=== PATIENT | male | born 1980 | race Caucasian/White ===

== ENCOUNTER 2016-05-29 07:45 | Emergency (ER) | payer BC ==
--- NOTE | 2016-05-29 07:54 | UC ---
Throat Pain/Nasal Rhett HPI - HPI Summary HPI Summary: Girlfriend and her child have had confirmed strep throat. - History of Current Complaint Stated Complaint: SORE THROAT,FEVER Hx Obtained From: Patient Onset/Duration: Gradual Onset Severity: Moderate Cough: None Associated Signs & Symptoms: Positive: Dysphagia. Negative: FB Sensation, Drooling, Wheezing, Hoarseness, Sinus Discomfort, Vomiting, Rash - Epiglottits Risk Factors Epiglottis Risk Factors: Negative - Allergies/Home Medications Allergies/Adverse Reactions: Allergies Allergy/AdvReac Type Severity Reaction Status Date / Time No Known Allergies Allergy Verified 05/29/16 07:51 Home Medications: Home Medications Acetaminophen TAB* [Tylenol TAB*] 650 mg PO Q4H PRN 05/29/16 [History Confirmed 05/29/16] PMH/Surg Hx/FS Hx/Imm Hx GI/ History Of: Reports: Gastroesophageal Reflux Denies: Ulcer, Gastrointestinal Bleed - Surgical History Surgical History: None - Family History Known Family History: Positive: Respiratory Disease - Denies FMH of COPD - Social History Alcohol Use: Weekly Alcohol Amount: once a week Substance Use Type: None Smoking Status (MU): Never Smoked Tobacco Type: Smokeless Tobacco - Immunization History Most Recent Influenza Vaccination: none Review of Systems All Other Systems Reviewed And Are Negative: Yes Physical Exam Triage Information Reviewed: Yes Appearance: Well-Appearing, No Pain Distress, Well-Nourished Vital Signs Reviewed: Yes Eye Exam: Normal Eyes: Positive: Conjunctiva Clear. Negative: Conjunctiva Inflamed ENT Exam: Normal ENT: Positive: Normal ENT inspection, Hearing grossly normal, Pharyngeal erythema, TMs normal. Negative: Nasal congestion, Nasal drainage, TM bulging, TM dull, TM red, Tonsillar swelling, Tonsillar exudate, Trismus, Muffled/hoarse voice Dental Exam: Normal Neck exam: Normal Neck: Positive: Supple, Nontender, No Lymphadenopathy. Negative: Nuchal Rigidity, Tenderness @, Enlarged Nodes @ Respiratory Exam: Normal Respiratory: Positive: Lungs clear, Normal breath sounds, No respiratory distress, No accessory muscle use. Negative: Respiratory distress, Decreased breath sounds, Accessory muscle use Cardiovascular: Positive: RRR, No Murmur, Pulses Normal Abdomen Description: Positive: Nontender, No Organomegaly, Soft Musculoskeletal Exam: Normal Musculoskeletal: Positive: Strength Intact, No Edema Neurological Exam: Normal Neurological: Positive: Alert, Muscle Tone Normal. Negative: Fatigued, Lethargic, Unresponsive Psychological Exam: Normal Skin Exam: Normal Skin: Negative: rashes Throat Pain/Nasal Course/Dx - Differential Dx/Diagnosis Differential Diagnosis/HQI/PQRI: Epiglottitis, Foreign Body, Influenza, Laryngitis, Néstor's Angina, Mononucleosis, Otitis Media, Peritonsillar Abscess , Pharyngitis, Sinusitis, Tonsillitis, URI Provider Diagnoses: strep throat pharyngitis. Discharge - Discharge Plan Condition: Good Disposition: HOME Prescriptions: Amoxicillin CAP* [Amoxicillin 500 MG CAP*] 500 mg PO TID #30 cap Patient Education Materials: Strep Throat (ED) Referrals: Gerald Long MD [Primary Care Provider] - If Needed
[2016-05-29 07:57] VITALS: BP 115/70
== END 2016-05-29 08:32 | disposition home or self-care (01) ==
LOC: UCCORT 07:45
DX: J02.0 Streptococcal pharyngitis (principal)
CPT/HCPCS: 87651; 99212; G0463

== ENCOUNTER 2016-05-31 07:32 | Emergency (ER) | payer BC ==
[2016-05-31 07:51] VITALS: BP 108/61
--- NOTE | 2016-05-31 08:02 | UC ---
Throat Pain/Nasal Rhett HPI - HPI Summary HPI Summary: Pt returns from 05/29/16 visit for worsening sore throat: now throat is coated with white; body aches, sweating. Pt had dx of strep; pt is on Amox since 05/11-. Fever is improved. Nml at 98 this AM without meds. had gone up to 102 2 days ago. No drooling, able to swallow. - History of Current Complaint Chief Complaint: UCRespiratory Stated Complaint: SORE THROAT Time Seen by Provider: 05/31/16 07:39 - Allergies/Home Medications Allergies/Adverse Reactions: Allergies Allergy/AdvReac Type Severity Reaction Status Date / Time No Known Allergies Allergy Verified 05/31/16 07:46 Home Medications: Home Medications Gwabckhdcedja-[id number]-[id number] [Nyquil Severe Cold/Flu 5-6.25-10-325 mg/15Ml] 1 liq PO BEDTIME PRN 05/31/16 [History Confirmed 05/31/16] PMH/Surg Hx/FS Hx/Imm Hx Previously Healthy: Yes GI/ History Of: Reports: Gastroesophageal Reflux Denies: Ulcer, Gastrointestinal Bleed - Surgical History Surgical History: None - Family History Known Family History: Positive: Respiratory Disease - Denies FMH of COPD - Social History Alcohol Use: Weekly Alcohol Amount: 8 beers Substance Use Type: None Smoking Status (MU): Never Smoked Tobacco Type: Smokeless Tobacco - Immunization History Most Recent Influenza Vaccination: none Review of Systems Constitutional: Fatigue Skin: Negative Eyes: Negative ENT: Sore Throat Respiratory: Negative Cardiovascular: Negative Gastrointestinal: Negative Genitourinary: Negative Motor: Negative Neurovascular: Negative Musculoskeletal: Myalgia Neurological: Negative Psychological: Negative All Other Systems Reviewed And Are Negative: Yes Physical Exam Triage Information Reviewed: Yes Appearance: Well-Appearing, No Pain Distress, Well-Nourished Vital Signs: Initial Vital Signs Temp 99.8 F 05/31/16 07:36 Pulse 92 05/31/16 07:36 Resp 18 05/31/16 07:36 BP 108/61 05/31/16 07:36 Pulse Ox 99 05/31/16 07:36 Vital Signs Reviewed: Yes Eye Exam: Normal ENT: Positive: Hearing grossly normal, TMs normal, Tonsillar swelling, Tonsillar exudate - no abscess, voice is nml.. Negative: Muffled/hoarse voice Dental Exam: Normal Neck: Positive: Supple, Enlarged Nodes @ - b/l anterior cervical - mild.. Negative: Nuchal Rigidity Respiratory Exam: Normal Respiratory: Positive: Lungs clear, Normal breath sounds, No respiratory distress, No accessory muscle use. Negative: Crackles, Rhonchi Cardiovascular Exam: Normal Cardiovascular: Positive: RRR, No Murmur, Pulses Normal, Brisk Capillary Refill Abdominal Exam: Normal Abdomen Description: Positive: Nontender, Soft Musculoskeletal Exam: Normal Neurological Exam: Normal Psychological Exam: Normal Skin Exam: Normal Throat Pain/Nasal Course/Dx - Course Course Of Treatment: Strep + TC 2 days ago, with continued sx after 2 days of amox. Although fever has resolved, no abscess is appreciated. F/u with ENT tomorrow if symptoms are no better. Has family member seen by Dr Hernandez and prefers f/u with him rather than [facility]. He understood me well and is very agreeable with this plan. - Differential Dx/Diagnosis Differential Diagnosis/HQI/PQRI: Influenza, Laryngitis, Peritonsillar Abscess, Pharyngitis Provider Diagnoses: strep pharyngitis Discharge - Discharge Plan Condition: Stable Disposition: HOME Prescriptions: Amoxicillin/Clavulanate TAB* [Augmentin TAB 875*] 875 mg PO BID #20 tab Patient Education Materials: Strep Throat (ED) Forms: *Work Release Referrals: Gerald Long MD [Primary Care Provider] - Haris Hernandez MD [Medical Doctor] - 1 Day Additional Instructions: Change to antibiotic to augmentin. If you are not better or things worsen, please call Dr Hernandez (ENT) for follow up tomorrow. Take a probiotic daily while you are on antibiotics. tylenol/nsaids for pain/fever. Make sure to take a probiotic every day while you are on the antibiotics.
== END 2016-05-31 08:37 | disposition home or self-care (01) ==
LOC: UCCORT 07:32
DX: J02.0 Streptococcal pharyngitis (principal)
CPT/HCPCS: 99212; G0463

== ENCOUNTER 2018-11-08 14:48 | Emergency (ER) | payer BC ==
[2018-11-08 16:20] VITALS: BP 134/75
--- NOTE | 2018-11-08 16:43 | UC ---
Skin Complaint HPI - HPI Summary HPI Summary: Per aquatics director: "--reports has had pain/skin sensitivity in the back on left side since 2018 when he had shingles; yesterday started having the same pain/sensitivity wrap around from back to abdomen -red, vesicular lesion just above pubic area x2 days, fever -Ibuprofen 600 mg 1430 -also took one Augmentin tab this am from a previous illness" -has had the same spot occur in [place] same spot several time sin past. a-usually treated successfully w/ augmentin - which is where he had this left over fom -not painful, no dc, no streaks - History of Current Complaint Chief Complaint: UCRash Time Seen by Provider: 11/08/18 16:35 Stated Complaint: FEVER,RASH Pain Intensity: 2 - Allergy/Home Medications Allergies/Adverse Reactions: Allergies Allergy/AdvReac Type Severity Reaction Status Date / Time No Known Allergies Allergy Verified 11/08/18 16:20 PMH/Surg Hx/FS Hx/Imm Hx Previously Healthy: Yes Psychological History: Anxiety - Surgical History Surgical History: None - Family History Known Family History: Positive: Respiratory Disease - Denies H of COPD - Social History Alcohol Use: Weekly Alcohol Amount: 2-3 times a week Substance Use Type: Marijuana Substance Use Comment - Amount & Last Used: 2 puffs at night for anxiety Smoking Status (MU): Smoker, Current Status Unknown Type: Smokeless Tobacco - Immunization History Most Recent Influenza Vaccination: none Review of Systems All Other Systems Reviewed And Are Negative: Yes Constitutional: Positive: Fever. Negative: Chills, Fatigue Skin: Positive: Other Eyes: Positive: Negative ENT: Positive: Negative Respiratory: Positive: Negative Cardiovascular: Positive: Negative Gastrointestinal: Positive: Negative Genitourinary: Positive: Negative Motor: Positive: Negative Neurovascular: Positive: Negative Musculoskeletal: Positive: Negative Neurological: Positive: Negative Is Patient Immunocompromised?: No Physical Exam Triage Information Reviewed: Yes Appearance: Well-Appearing, No Pain Distress, Well-Nourished - mildly anxious Vital Signs: Initial Vital Signs Temp 99.2 F 11/08/18 16:12 Pulse 82 11/08/18 16:12 Resp 15 11/08/18 16:12 BP 134/75 11/08/18 16:12 Pulse Ox 99 11/08/18 16:12 Vital Signs Reviewed: Yes Eye Exam: Normal Neck exam: Normal Respiratory Exam: Normal Respiratory: Positive: Lungs clear, Normal breath sounds, No respiratory distress, No accessory muscle use Cardiovascular Exam: Normal Cardiovascular: Positive: RRR, Brisk Capillary Refill Abdominal Exam: Normal Abdomen Description: Positive: Soft Musculoskeletal Exam: Normal Neurological Exam: Normal Psychological Exam: Normal Skin: Positive: Other - left suprapubic area w/ red ~ nickel sized lesion w/ central small pustule at hair follicle. no streaks, no dc. cool to touch. Course/Dx - Course Course Of Treatment: --discussed importance of completion of all meds and to avoid taking meds w/o recommendations of a provider. -Boli.folliculitis - augmentin x 10 d -may need to have drained if worsens. not ready to drain at this time -reassured - Diagnoses Provider Diagnosis: Furuncle Discharge ED - Sign-Out/Discharge Documenting (check all that apply): Patient Departure All imaging exams completed and their final reports reviewed: No Studies - Discharge Plan Condition: Stable Disposition: HOME Prescriptions: Amoxicillin/Clavulanate TAB* [Augmentin TAB 875*] 875 mg PO BID #19 tab Patient Education Materials: Furunculosis and Carbunculosis (ED) Referrals: No Primary Care Phys,NOPCP [Primary Care Provider] - [facility] [Outside] - 5 Days Additional Instructions: Make sure to take a probiotic daily while on antibiotics to help prevent a potential complication of antibiotic use called c diff. Some well known brands that can be found OTC are florastor, align and colon health. Make sure to complete the entire prescription unless advised otherwise by your health care provider. -You should be seen sooner if you the boil worsens, you develop chills. SOmetimes they need to be drained - Billing Disposition and Condition Condition: STABLE Disposition: Home
== END 2018-11-08 16:58 | disposition home or self-care (01) ==
LOC: UCCORT 14:48
DX: L02.92 Furuncle, unspecified (principal); F17.290 Nicotine dependence, other tobacco product, uncomplicated
CPT/HCPCS: 99212; G0463

== ENCOUNTER 2019-01-17 12:01 | Emergency (ER) | payer BC ==
[2019-01-17 13:35] VITALS: BP 137/77
--- NOTE | 2019-01-17 13:48 | UC ---
[facility] Dental HPI - HPI Summary HPI Summary: 38 yo juan david with left lower dental pain x months first was going to have root canals but ins denied then opted for extraction now increased pain unable to sleep has had one days worth of amox - History of Current Complaint Chief Complaint: UCDentalProblem Stated Complaint: DENTAL PAIN Time Seen by Provider: 01/17/19 13:46 Hx Obtained From: Patient Onset/Duration: Gradual Onset, Lasting Weeks - mos Severity: Severe Pain Intensity: 9 Pain Scale Used: 0-10 Numeric Aggravating Factor(s): Chewing Alleviating Factor(s): Nothing Related History: Swelling Dental: 1 - swelling gum/no descrete abscess - Allergies/Home Medications Allergies/Adverse Reactions: Allergies Allergy/AdvReac Type Severity Reaction Status Date / Time No Known Allergies Allergy Verified 01/17/19 13:28 Home Medications: Home Medications Acetaminophen [Acetaminophen Extra Strength] 1,000 mg PO Q6H PRN 01/17/19 [ History Confirmed 01/17/19] Ibuprofen TAB* [Advil TAB*] 600 mg PO Q6H PRN 01/17/19 [History Confirmed ] PMH/Surg Hx/FS Hx/Imm Hx Previously Healthy: Yes - Surgical History Surgical History: None - Family History Known Family History: Positive: Respiratory Disease - Denies FMH of COPD - Social History Alcohol Use: Occasionally Alcohol Amount: 2-3 times a week Substance Use Type: Marijuana Substance Use Comment - Amount & Last Used: 2 puffs at night for anxiety Smoking Status (MU): Smoker, Current Status Unknown Type: Smokeless Tobacco Amount Used/How Often: less than 1 can daily - Immunization History Most Recent Influenza Vaccination: none Review of Systems All Other Systems Reviewed And Are Negative: Yes Constitutional: Positive: Negative Skin: Positive: Negative Eyes: Positive: Negative ENT: Positive: Dental Pain Respiratory: Positive: Negative Cardiovascular: Positive: Negative Gastrointestinal: Positive: Negative Genitourinary: Positive: Negative Motor: Positive: Negative Neurovascular: Positive: Negative Musculoskeletal: Positive: Negative Neurological: Positive: Negative Physical Exam Triage Information Reviewed: Yes Appearance: Well-Appearing, No Pain Distress, Well-Nourished Vital Signs: Initial Vital Signs Temp 99.2 F 01/17/19 13:29 Pulse 59 01/17/19 13:29 Resp 16 01/17/19 13:29 BP 137/77 01/17/19 13:29 Pulse Ox 100 01/17/19 13:29 Vital Signs Reviewed: Yes Eyes: Positive: Conjunctiva Clear ENT: Positive: Hearing grossly normal, Uvula midline. Negative: Nasal congestion, Nasal drainage, Tonsillar swelling, Tonsillar exudate, Hoarse voice Dental: Positive: Other: - see image Neck: Positive: Supple, Nontender, No Lymphadenopathy Respiratory: Positive: Lungs clear, Normal breath sounds, No respiratory distress, No accessory muscle use Cardiovascular: Positive: RRR, No Murmur Abdominal Exam: Normal Bowel Sounds: Positive: Present Musculoskeletal: Positive: ROM Intact, No Edema Neurological: Positive: Alert Psychological Exam: Normal Skin Exam: Normal Dental Complaint Course/Dx - Differential Dx/Diagnosis Provider Diagnosis: Dentalgia Discharge ED - Sign-Out/Discharge Documenting (check all that apply): Patient Departure All imaging exams completed and their final reports reviewed: No Studies - Discharge Plan Condition: Stable Disposition: HOME Prescriptions: HYDROcodone/ACETAMIN 5-325 MG* [Erwin 5-325 TAB*] 1 tab PO Q4H PRN #6 tab MDD 6 PRN Reason: Pain - Severe Penicillin VK 500 MG TAB(NF) [Penicillin VK 500 mg Tab] 500 mg PO QID #28 tab Patient Education Materials: Toothache (ED) Referrals: Ronnie Santos MD [Primary Care Provider] - Additional Instructions: see dentist Sunday as planned to ER for new or worsening symptoms - Billing Disposition and Condition Condition: STABLE Disposition: Home
== END 2019-01-17 14:15 | disposition home or self-care (01) ==
LOC: UCCORT 12:01
DX: K08.89 Other specified disorders of teeth and supporting structures (principal); F17.220 Nicotine dependence, chewing tobacco, uncomplicated
CPT/HCPCS: 99212; G0463